=== PATIENT | male | born 1950 | race Caucasian/White ===

== ENCOUNTER 2025-02-15 15:28 | Outpatient (CLI) | payer OTHER, SELFPAY ==
--- NOTE | 2025-02-15 16:00 | CRLHL7_ITS ---
For Patients: As a result of the Century Cures Act, medical imaging exams and procedure reports are released immediately into your electronic medical record. You may view this report before your referring provider. If you have questions, please contact your health care provider. INDICATION: Shortness of breath, cough. TECHNIQUE: CT chest PE was acquired with 95 cc Isovue 370 IV contrast. MIP reconstructions were performed. COMPARISON: None. FINDINGS: Heart and vasculature: Contrast opacification of the pulmonary arterial tree is adequate. No sign of pulmonary embolism. Mild cardiomegaly. Coronary artery calcifications. Thoracic aorta and pulmonary artery are normal in caliber. Lungs and pleura: Peripheral basilar predominant interstitial reticulations, likely interstitial lung disease. Some superimposed mosaic attenuation throughout the lungs. No large focal consolidations. No pleural effusions, pleural thickening, or pneumothorax. Lymph nodes/mediastinum: Small hiatal hernia. No mediastinal, hilar, or axillary adenopathy. Chest wall: No masses. Upper abdomen: No acute or significant findings. Bones: Sternotomy. Unremarkable for age. IMPRESSION: No pulmonary embolism. Peripheral basilar predominant interstitial reticulation, likely interstitial lung disease. Some superimposed mosaic attenuation throughout the lungs which could represent superimposed infection. No large focal consolidations. Please note that all CT scans at this facility use dose modulation, iterative reconstruction, and/or weight-based dosing when appropriate to reduce radiation dose to as low as reasonably achievable. Dictated by Sony Edwards MD @ 02/15/2025 5:19:42 PM (Electronically Signed)
[2025-02-15 16:13] LABS: Creatinine* 1.6 mg/dL (0.5-1.5); Estimated Glomerular Filt Rate 46 ml/min
== END 2025-02-15 15:29 | disposition home or self-care (01) ==
LOC: CT 15:29
PROVIDERS: Visit Provider Physician Assistant Medical
DX: R06.02 Shortness of breath (principal); R93.89 Abnormal findings on diagnostic imaging of other specified body structures
CPT/HCPCS: 36415; 71275; 82565; Q9967